=== PATIENT | male | born 1935 | race Hispanic/Latino ===

== ENCOUNTER 2017-05-14 10:08 | Emergency (ER) | payer MEDICARE ==
[~2017-05-14] VITALS: Ht 162.6 cm; Wt 102.1 kg
[~2017-05-14 10:08] MED LIST: DONEPEZIL HCL; PHENYTOIN SODI100 M1; TRAMADOL100 MG; Z.0.CARAFATE1 GM; Z.0.ENALAPRIL MALEA2; Z.0.FINASTERIDE5 MG; Z.0.GLUCOPHAGE500 MG; Z.0.LEVOTHROID25 MCG; Z.0.OMEPRAZOLE20 M1; [UNRECOGNIZED DRUG - OTHER]
--- NOTE | 2017-05-14 12:09 | Diagnostic Imaging Report ---
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 No acute finding. IMPRESSION: Chronic findings as above. Signed by: Dr. Quincy Teran MD on 05/14/2017 12:06 PM
--- NOTE | 2017-05-14 12:10 | Diagnostic Imaging Report ---
EXAM: SACRUM COCCYX DATE: 05/14/2017 10:36 AM INDICATION: Pain COMPARISON: None FINDINGS: Bilateral hip arthroplasty changes. Sacrum obscured. No depressed coccygeal fracture. Degenerative changes lumbar spine partially visualized. IMPRESSION: As above. Signed by: Dr. Quincy Teran MD on 05/14/2017 12:06 PM
[2017-05-14 13:03] VITALS: BP 131/69
== END 2017-05-14 13:38 | disposition home or self-care (01) ==
LOC: ER 10:08
DX: S30.0XXA Contusion of lower back and pelvis, initial encounter (principal); W18.30XA Fall on same level, unspecified, initial encounter; Y92.008 Other place in unspecified non-institutional (private) residence as the place of occurrence of the external cause
CPT/HCPCS: 72170; 72220; 99283

== ENCOUNTER → 2019-03-01 | Outpatient (CLI) | payer MEDICARE ==
--- NOTE | 2019-02-28 10:36 | Diagnostic Imaging Report ---
EXAMINATION: CHEST 2 VIEWS INDICATION: Pre-operative COMPARISON: None FINDINGS: LINES/TUBES:None LUNGS:The lungs are well-inflated. No focal consolidation or pulmonary edema. PLEURA:No pleural effusion or pneumothorax. MEDIASTINUM:The cardiomediastinal silhouette appears normal in size and shape. Atherosclerotic calcifications of the thoracic aorta. BONES/SOFT TISSUES:No acute osseous injury. ABDOMEN:No free air under the diaphragm. IMPRESSION: No focal pneumonia or pulmonary edema. Signed by: Rudi Garza MD on 02/28/2019 10:32 AM
[2019-02-28 10:38] LABS: BASOPHILS % 0.5 % (0.0-1.0); EOSINOPHILS # (AUTO) 0.2 (0.0-0.4); EOSINOPHILS % 2.9 % (0.0-6.0); HEMATOCRIT 36.2 % (38.2-49.6); HEMOGLOBIN 11.8 g/dL (14.0-18.0); LYMPHOCYTES # (AUTO) 1.3 (1.0-3.2); LYMPHOCYTES % 20.1 % (18.0-39.1); MEAN CORPUSCULAR HEMOGLOBIN 32.6 pg (28-32); MEAN CORPUSCULAR HGB CONC 32.6 g/dL (31-35); MONOCYTES # (AUTO) 0.7 (0.2-0.8); MONOCYTES % 11.1 % (4.4-11.3); NEUTROPHILS # (AUTO) 4.1 (2.1-6.9); NEUTROPHILS % 64.9 % (38.7-80.0); PLATELET COUNT 183 x10e3/uL (140-360); RED BLOOD COUNT 3.62 x10e6/uL (4.3-5.7); RED CELL DISTRIBUTION WIDTH 13.2 % (11.7-14.4)
[2019-02-28 10:56] LABS: ANION GAP 10.9 mmol/L (8-16); CALCIUM 9.3 mg/dL (8.4-10.2); CREATININE, SERUM 1.63 mg/dL (0.72-1.25); POTASSIUM 5.9 mmol/L (3.5-5.1)
[2019-02-28 11:11] LABS: INR 0.93
[2019-02-28 11:13] LABS: PARTIAL THROMBOPLASTIN TIME 31.4 seconds (23.8-35.5)
[~2019-03-01] MED LIST changes: +ACETAMINOPHEN 1000 MG/100 ML 100 ML IV ONE; +ASPIR 8181 MG PO; +CARBAMAZEPINE200 MG PO; +FLOMAX0.4 MG PO; +GLIPIZIDE ER5 MG PO; +HYDROCHLOROTHIA25 MG PO; +IBUPROFEN 800MG/ 250ML 250 ML IV ONE; +LIDOCAINE HCL (LTA) 4 ML SOLN ONE; +LISINOPRIL10 MG PO; +OXYBUTYNIN CHLOR5 M1 PO; +SIMVASTATIN40 MG PO; -TRAMADOL100 MG; +TRAMADOL100 MG PO; -Z.0.LEVOTHROID25 MCG; +Z.0.LEVOTHROID25 MCG PO
--- OUTSIDE RECORDS SUMMARY | 2019-03-01 08:47 | XMS REPORT ---
Author [facility] Address Unknown Phone Unavailable Care Team Providers Care Admitting Clerk Name Role Phone LISSETT SILVESTRE Unavailable Unavailable Autumn HIGGINBOTHAM Unavailable Unavailable Problems This patient has no known problems. Allergies, Adverse Reactions, Alerts This patient has no known allergies or adverse reactions. Medications This patient has no known medications. Results Test Description Test Time Test Comments Text Results Atomic Results Result Comments CHEST 2 VIEWS 2019-02-28 10:31:00 [place] [address] Patient Name: MISAEL LAW MR #: [id number] : 1935 Age/Sex: 83/M Req #: [id number] Adm Physician: Ordered by: LISSETT SILVESTRE MD Report #: [id number] Location: OR Room/Bed: Procedure: [id number] DX/CHEST 2 VIEWS Exam Date: 02/28/19 Exam Time: 1027 REPORT STATUS: Signed EXAMINATION: CHEST 2 VIEWS INDICATION: Pre-operative COMPARISON: None FINDINGS: LINES/TUBES:None LUNGS:The lungs are well-inflated. No focal consolidation or pulmonary edema. PLEURA:No pleural effusion or pneumothorax. MEDIASTINUM:The cardiomediastinal silhouette appears normal in size and shape. Atherosclerotic calcifications of the thoracic aorta. BONES/SOFT TISSUES:No acute osseous injury. ABDOMEN:No free air under the diaphragm. IMPRESSION: No focal pneumonia or pulmonary edema. 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 No acute finding. IMPRESSION: Chronic findings as above. Signed by: Dr. Ysabel Teran MD on 05/14/2017 12:06 PM Dictated By: YSABEL TERAN MD 05 Transcribed By: CLARA on 05/14/171205 COPY TO: ROBBIE HIGGINBOTHAM MD SACRUM COCCYX [place] [address] Patient Name: MISAEL LAW MR #: [id number] : 1935 Age/Sex: 81/M Req #: [id number] [facility] Physician: Ordered by: ROBBIE HIGGINBOTHAM MD Report #: [id number] Location: ER Room/Bed: Procedure: [id number] DX/SACRUM COCCYX Exam Date: 05/14/17 Exam Time: 1135 REPORT STATUS: Signed EXAM: SACRUM COCCYX DATE: 05/14/2017 10:36 AM INDICATION: Pain COMPARISON: None FINDINGS: Bilateral hip arthroplasty changes. Sacrum obscured. No depressed coccygeal fracture. Degenerative changes lumbar spine partially visualized. IMPRESSION: As above. Signed by: Dr. Ysabel Teran MD on 05/14/2017 12:06 PM Dictated By: YSABEL TERAN MD 120 Transcribed By: CLARA on 05/14/177 COPY TO: ROBBIE HIGGINBOTHAM MD
[2019-03-01 09:36] LABS: ANION GAP 13.9 mmol/L (8-16); CALCIUM 9.1 mg/dL (8.4-10.2); CREATININE, SERUM 1.76 mg/dL (0.72-1.25); POTASSIUM 5.9 mmol/L (3.5-5.1)
== END ==
LOC: RAD 05:00 → OR 08:45 → EDSTATUS 11:00
PROVIDERS: ATTEND Neurological Surgery
DX: Z01.818 Encounter for other preprocedural examination (principal); M48.061 Spinal stenosis, lumbar region without neurogenic claudication; Z53.8 Procedure and treatment not carried out for other reasons
CPT/HCPCS: 36415 ×2; 71046; 80048 ×2; 82948; 85025; 85610; 85730; 86850; 86900; 93005; J0131